=== PATIENT | male | born 1980 | race Caucasian/White ===

== ENCOUNTER → 2017-07-17 | Outpatient (CLI) | payer BC ==
--- NOTE | 2017-07-17 11:35 | XR ---
EXAMINATION TYPE: XR Hip RT and AP Pelvis DATE OF EXAM: 07/17/2017 COMPARISON: NONE HISTORY: Right groin pain TECHNIQUE: A single AP view of the pelvis is obtained. Two views of the right hip are obtained. FINDINGS: There is no acute fracture/dislocation evident in the pelvis. The sacroiliac joints appea r symmetric and unremarkable. The overlying soft tissue appears unremarkable. Two views of right hip show no acute fracture or dislocation. No focal lytic or sclerotic lesion see n in the proximal right femur. The overlying soft tissue is unremarkable. Marginal spurring is susp ected in the femoral heads, there is some joint space loss bilaterally. IMPRESSION: There is no acute fracture or dislocation in the pelvis or right hip. Osteoarthritic megan nges are suspected.
== END | disposition home or self-care (01) ==
LOC: RADXRMAIN 10:54
PROVIDERS: ATTEND Nurse Practitioner Family
DX: R10.31 Right lower quadrant pain (principal)
CPT/HCPCS: 73502

== ENCOUNTER 2017-11-15 13:31 | Day surgery (SDC) | payer BC ==
[2017-11-13 15:39] VITALS: BMI 27.7
--- NOTE | 2017-11-15 07:15 | P.GSHP ---
History of Present Illness H&P Date: 11/15/17 CHIEF COMPLAINT: Inguinal hernia, right HISTORY OF PRESENT ILLNESS: The patient is a 37-year-old male who presents with a history of swelling and pain along the right groin and umbilicus. He's noted increased swelling including pain of the area. Now he presents for repair of his inguinal hernia and umbilicus. PAST MEDICAL HISTORY: Please see list. PAST SURGICAL HISTORY: Please see list. MEDICATIONS: Please see list. ALLERGIES: Please see list. SOCIAL HISTORY: No illicit drug use FAMILY HISTORY: No reports of Crohn disease or ulcerative colitis. REVIEW OF ORGAN SYSTEMS: CONSTITUTIONAL: No reports of fevers or chills. No reports of weight loss despite prior attempts. GI: Denies any blood in stools or constipation. PHYSICAL EXAM: VITAL SIGNS: Stable GENERAL: Well-developed pleasant male in no acute distress. HEENT: No scleral icterus. Extraocular movements grossly intact. Moist buccal mucosa. NECK: Supple without lymphadenopathy. CHEST: Unlabored respirations. Equal bilateral excursions. CARDIOVASCULAR: Regular rate and rhythm. Distal 2+ pulses. ABDOMEN: Soft, nondistended. No peritoneal signs. Palpable defect of the groin and umbilicus. MUSCULOSKELETAL: No clubbing, cyanosis, or edema. ASSESSMENT: 1. Inguinal hernia, right and symptomatic. 2. Umbilical hernia. PLAN: 1. Recommend proceeding with a robotic ventral and inguinal repair with mesh with possible bilateral approach. 2. Benefits and risks of surgical intervention was discussed including possibility of open technique. 3. May need overnight observation pending anticipated postoperative pain. 4. DVT prophylaxis. 5. Antibiotic prophylaxis. Past Medical History Past Medical History: GERD/Reflux History of Any Multi-Drug Resistant Organisms: None Reported Additional Past Surgical History / Comment(s): wisdom teeth removed,vasectomy Past Anesthesia/Blood Transfusion Reactions: No Reported Reaction Smoking Status: Former smoker - Past Family History Mother Family Medical History: No Reported History Medications and Allergies Home Medications Medication Instructions Recorded Confirmed Type Multivitamin [Men's Multi-Vitamin] 1 each PO DAILY 11/13/17 11/13/17 History Omeprazole [PriLOSEC] 20 mg PO DAILY PRN 11/13/17 11/13/17 History Allergies Allergy/AdvReac Type Severity Reaction Status Date / Time No Known Allergies Allergy Verified 11/13/17 12:50
[~2017-11-15 13:31] MED LIST: DEXAMETHASONE SOD PHOSPHATE 10 MG/ML 1 ML VIAL IV ONE; HEPARIN SODIUM,PORCINE 5,000 UNIT/ML 1 ML VIAL SQ ONE; LACTATED RINGERS 1,000 ML IV ONE; LIDOCAINE 1% 20 ML VIAL (10MG/ML) FOR IV START INTRADERMA PRN; MIDAZOLAM 2 MG/2 ML VIAL IV PRN; MORPHINE SULFATE 4 MG/ML SYRINGE IV PRN; ONDANSETRON 4 MG/2 ML VIAL IVP ONE; SCOPOLAMINE 1.5MG/72HR PATCH TRANSDERM ONE; ceFAZolin IN SWFI 2 GM/20 ML SYRINGE IVP ONE
[2017-11-15 13:43] VITALS: TEMP 97.8
[2017-11-15] MEDS ORDERED: LACTATED RINGERS 1,000 ML IV ONE ×2 (13:45)
[2017-11-15] MEDS ORDERED: ROCURONIUM BROMIDE 10 MG/ML 10 ML VIAL IV ONE (14:31)
[2017-11-15] MEDS ORDERED: MIDAZOLAM 2 MG/2 ML VIAL ONE (14:31)
[2017-11-15] MEDS ORDERED: MEPERIDINE 50 MG/ML SYRINGE ONE (14:31)
[2017-11-15] MEDS ORDERED: LIDOCAINE 1% INJ 10MG/ML (20 ML MDV) ONE (14:31)
[2017-11-15] MEDS ORDERED: SUCCINYLCHOLINE CHLORIDE VIAL 200 MG/10 ML VIAL IV ONE (14:31)
[2017-11-15] MEDS ORDERED: NEOSTIGMINE 1 MG/ML 10 ML VIAL ONE (14:31)
[2017-11-15] MEDS ORDERED: GLYCOPYRROLATE 0.2 MG/ML 2 ML VIAL ONE (14:31)
[2017-11-15] MEDS ORDERED: diphenhydrAMINE 50 MG/ML 1 ML VIAL ONE (14:31)
[2017-11-15] MEDS ORDERED: fentaNYL (PF) 50 MCG/ML 2 ML AMP ONE (14:31)
[2017-11-15] MEDS ORDERED: PROPOFOL 10 MG/ML 20 ML VIAL IV ONE (14:31)
[2017-11-15] MEDS ORDERED: BUPIVACAINE (PF) 0.25% 30 ML VIAL SQ ONE (14:55)
[2017-11-15] MEDS ORDERED: TAMSULOSIN 0.4 MG CAP.ER.24H PO STA (17:41)
[2017-11-15] MEDS ORDERED: HYDROcodone/APAP 5-325MG 1 EACH TAB PO ONE (18:48)
[2017-11-15 19:06] VITALS: RESP 18
[2017-11-15 19:27] VITALS: BP 153/95; PULSE 78
--- NOTE | 2017-11-24 17:49 | P.OP ---
Date of Procedure: 11/15/17 Description of Procedure: SURGEON: TAMMI PERRY MD [employer]ING SUPERVISOR: 1. AMOL [place] PREOPERATIVE DIAGNOSES: 1. Right inguinal hernia, initial 2. Umbilical hernia, initial 3. Gastroesophageal reflux disease POSTOPERATIVE DIAGNOSES: 1. Right inguinal hernia, initial, incarcerated, Nyhus type III, direct and indirect 2. Umbilical hernia, initial, incarcerated, 2 cm 3. Gastroesophageal reflux disease 4. Left inguinal hernia, initial, indirect 5. Incarcerated right inguinal lipoma, 4 cm OPERATION: 1. Robotic-assisted da Laura Xi laparoscopic repair of initial incarcerated right inguinal hernia with mesh 2. Robotic-assisted da Laura Xi laparoscopic repair of initial incarcerated left inguinal hernia with mesh 3. Robotic-assisted da Laura Xi laparoscopic excision of right inguinal lipoma 4. Robotic-assisted da Laura Xi laparoscopic repair of incarcerated umbilical hernia, 2 cm, without mesh ANESTHESIA: General with local ESTIMATED BLOOD LOSS: 20 mL. SPECIMENS: Incarcerated right inguinal lipoma and umbilical hernia sac COMPLICATIONS: None. INDICATIONS: The patient is a 37-year-old male who presents with pain along the right groin including umbilical swelling. Surgical intervention with laparoscopic versus robotic and open techniques were reviewed for bilateral inguinal hernia repairs including umbilical hernia. Placement of mesh was also reviewed. Benefits and risks were thoroughly described. Informed consent was obtained. DESCRIPTION OF PROCEDURE: The patient was brought into the operating room and laid in supine position. After general induction, the abdomen had been prepped and draped in standard sterile fashion. Ioban draping was also placed. Prior to incision, a timeout protocol was confirmed with surgical team regarding the patient's name including procedures to be performed. The robot was primed prior to the procedure. A field block using local anesthetis was placed along hernia site including the proposed port sites. Initial incision was made with an #11 blade along the left upper quadrant. A 0 degree 5 mm laparoscopic trocar entry was performed. Diagnostic laparoscopy demonstrated large bilateral inguinal hernias. Both indirect and direct hernia was found along the right groin. An indirect hernia was also identified in the left groin. Separately an incarcerated fat containing hernia of the umbilicus was identified. A 12 mm trocar was placed along the epigastrium 12 cm above the umbilicus into the left of the falciform ligament. An 8 mm port was placed along the right upper quadrant under direct localization. The 5-mm port was exchanged for an 8 mm robotic port. Placements of the ports were 15 cm from the target anatomy and approximately 10 cm apart. The da Laura Xi robot was previously primed, prepped and draped then docked along the left side of the patient. I then sat at the robot Da Laura Xi console where working arms of the robot including Bovie cautery connected to robotic scissors, vessel sealer, needle automation driver, and graspers placed by the regulatory assistant. Attention was brought to the bilateral groins. At the right groin, both indirect and direct inguinal hernia were identified consistent with Nyhus type III. Initial attention was brought to the direct hernia where the peritoneum was scored. The contents of the direct hernia was evaginated into the abdominal wall. A large 4 cm inguinal lipoma was identified and incarcerated to the external inguinal ring. The large lipoma was resected using a vessel sealer. Next, the indirect hernia sac was similarly reduced into the abdominal cavity. The size of the peritoneal defect combined was 4 cm. The peritoneal defects were oversewn using 2-0 VLOC in a transverse fashion. The incarcerated right inguinal lipoma and hernia sac were sent for pathological analysis. Next, a 3 cm left indirect hernia was identified consistent with Nyhus type II. Similarly, the peritoneum around the hernia orifice was scored. The hernia sac was evaginated. The peritoneal defect was oversewn also with 2-0 V LOC in a transverse plane. For both inguinal hernia sites, a 10 x [address] mesh by [employer] was initially cut in half and entered into the abdominal cavity. The mesh was oversewn to the pelvis using 2-0 VLOC first of the right groin followed by the left side. Attention was brought to the umbilicus. The peritoneal fat was cleaned off the abdominal wall. A fascial defect of 2 cm was identified. An incarcerated fat- containing hernia was reduced and excised. Next, hemostasis was checked with cautery. The hernia defect was oversewn using #1 Stratafix with imbrication 3. Final endoscopic imaging was obtained. All instruments and pneumoperitoneum were evacuated from the abdominal cavity. The da Laura Xi robot was undocked from the patient. I re-scrubbed into the case for closure of incisions. The fascia of the 12-mm port was probed and less than 8-mm in size. The incisions were reapproximated using 4-0 Monocryl in an interrupted subcuticular fashion. Dermabond was applied to the skin after cleansing the skin with normal saline and dilute hydrogen peroxide. A dressing was placed at the umbilicus with 4 x 4 gauze followed by Tegaderm. An abdominal binder was placed. At the end of the procedure, needle, sponge, and instrument count had been verified correct by surgical rn. The patient was taken to the postanesthesia care unit in stable condition. FINDINGS: 1. Initial incarcerated hernia of the umbilicus, 2 cm 2. Total of 4 abdominal wall hernias, two right groin hernias, one left groin hernia, and an umbilical hernia 3. Nyhus type III hernia of the right groin including indirect and direct hernia with total size of hernia defect 4 cm 4. Nyhus type II hernia of the left groin, indirect, 3 cm. 5. Incarcerated right inguinal lipoma of the direct hernia 4 cm in size Plan - Discharge Summary New Discharge Prescriptions: New HYDROcodone/APAP 5-325MG [Lost[place] 5-325] 1 tab PO Q6HR PRN #20 tab PRN Reason: Pain Ibuprofen [Motrin] 600 mg PO Q8HR PRN #30 tab PRN Reason: Pain No Action Omeprazole [PriLOSEC] 20 mg PO DAILY PRN PRN Reason: Heartburn Multivitamin [Men's Multi-Vitamin] 1 each PO DAILY Discharge Medication List Multivitamin [Men's Multi-Vitamin] 1 each PO DAILY 11/13/17 [History] Omeprazole [PriLOSEC] 20 mg PO DAILY PRN 11/13/17 [History] HYDROcodone/APAP 5-325MG [Lostant 5-325] 1 tab PO Q6HR PRN #20 tab 11/15/17 [Rx] Ibuprofen [Motrin] 600 mg PO Q8HR PRN #30 tab 11/15/17 [Rx] Follow up Appointment(s)/Referral(s): Tammi Perry MD [STAFF PHYSICIAN] - 11/19/17 (Please call to confirm time) Patient Instructions/Handouts: *Surgery [facility] - (Anesthesia) Discharge Instructions Outpatient Surgery, Laparoscopic Herniorrhaphy (DC), Abdominal Binder (GEN), Ventral Hernia Repair (GEN), Inguinal Hernia Repair (GEN) Activity/Diet/Wound Care/Special Instructions: No lifting over 4 pounds in 4 weeks. May shower. No bath tub soaks. Do not remove dressing. Wear abdominal binder at all times except showering Discharge Disposition: HOME SELF-CARE
== END 2017-11-15 19:45 | disposition home or self-care (01) ==
LOC: OR 13:31
PROVIDERS: ATTEND Surgery Plastic and Reconstructive Surgery
DX: K40.00 Bilateral inguinal hernia, with obstruction, without gangrene, not specified as recurrent (principal); K42.0 Umbilical hernia with obstruction, without gangrene; D17.6 Benign lipomatous neoplasm of spermatic cord; K21.9 Gastro-esophageal reflux disease without esophagitis; Z87.891 Personal history of nicotine dependence; Z79.899 Other long term (current) drug therapy
CPT/HCPCS: 88302; 49650; 49653; C1781; J2250; J0330; J1200; J1644; J1100; J2710; J2175; J2405; J2001; J3010; J2704; J0690

== ENCOUNTER → 2019-02-27 | Outpatient (CLI) | payer BC ==
--- NOTE | 2019-02-27 16:38 | XR ---
Left foot HISTORY: Left foot pain 3 views of the left foot Bone mineralization, joint spaces and alignment are maintained. Soft tissue swelling noted at the fir st digit. IMPRESSION: No fracture or dislocation.
== END | disposition home or self-care (01) ==
LOC: RADXRMAIN 12:42
PROVIDERS: ATTEND Pediatrics
DX: M79.672 Pain in left foot (principal)

== ENCOUNTER → 2024-06-23 | Outpatient (CLI) | payer BC ==
--- NOTE | 2024-06-23 17:43 | US ---
EXAMINATION TYPE: US groin RT DATE OF EXAM: 06/23/2024 COMPARISON: NONE CLINICAL INDICATION: Male, 44 years old with history of [id number] INGUINAL HERNIA; Right groin pain was m oving furniture. Had hernia surgery in 2017. TECHNIQUE: Grayscale imaging the area of concern in the right groin. FINDINGS: No organizing fluid collection mass visualized. No herniated definitively visualized. IMPRESSION: No definitive abnormality visualized. Consider cross-sectional imaging for further workup inguinal hernia. [facility], , 06/23/2024 5:41 PM
== END | disposition home or self-care (01) ==
LOC: RADUSWWP 14:57
PROVIDERS: ATTEND Pediatrics
DX: K40.90 Unilateral inguinal hernia, without obstruction or gangrene, not specified as recurrent (principal)